=== PATIENT | male | born 1970 | race Caucasian/White ===

== ENCOUNTER 2020-01-07 10:48 | Emergency (ER) | payer OTHER ==
[~2020-01-07] VITALS: Ht 188 cm; Wt 89.8 kg
[2020-01-07 11:11] VITALS: BP_SYST 184
[2020-01-07] MEDS ORDERED: NACL 0.9% 1,000 ML IV ONE (11:23)
[2020-01-07] MEDS ORDERED: ASPIRIN 81 MG TAB.CHEW PO ONE (11:30)
[2020-01-07 11:50] LABS: BASOPHILS % (AUTO) 0.7 % (0.0-2.0); EOSINOPHILS % (AUTO) 0.5 % (0.0-4.0); HEMATOCRIT 50.3 % (36-54); HEMOGLOBIN 17.4 g/dL (14.0-18.0); LYMPHOCYTES # (AUTO) 1.6 K/uL (1.0-5.5); LYMPHOCYTES % (AUTO) 24.6 % (20.5-51.5); MEAN CORPUSCULAR HEMOGLOBIN 34 pg (27-31); MEAN CORPUSCULAR HGB CONC 35 % (32-36); MEAN CORPUSCULAR VOLUME 98 fL (79.0-98.0); MONOCYTES # (AUTO) 0.5 K/uL (0.0-1.0); MONOCYTES % (AUTO) 7.4 % (1.7-9.3); NEUTROPHILS # (AUTO) 4.3 K/uL (1.8-7.7); NEUTROPHILS % (AUTO) 66.8 % (40.0-70.0); PLATELET COUNT (AUTO) 300 K/uL (130-430); RED BLOOD CELL COUNT(AUTO) 5.14 MIL/uL (4.2-6.2); RED CELL DISTRIBUTION WIDTH 12.9 % (9.0-15.0); WHITE BLOOD COUNT (AUTO) 6.4 K/uL (4.8-10.8)
[2020-01-07 11:54] LABS: BARBITURATE, URINE NEGATIVE (NEG <=200); BENZODIAZEPINE, URINE NEGATIVE (NEG <=150); CANNABINOID, URINE NEGATIVE (NEG <=50); COCAINE, URINE NEGATIVE (NEG <=150); METHAMPHETAMINES SCREEN,URINE NEGATIVE (NEG <=500); OPIATE, URINE NEGATIVE (NEG <=100); PHENCYCLIDINE SCREEN,URINE NEGATIVE (NEG <=25); UR TRICYCLIC ANTIDEPRESSANTS NEGATIVE (NEG <=300); URINE AMPHETAMINE NEGATIVE (NEG <=500); URINE METHADONE NEGATIVE (NEG <=200); URINE OXYCODONE SCREEN NEGATIVE (NEG <=100); URINE PROPOXYPHENE SCREEN NEGATIVE (NEG <=300)
[2020-01-07 12:04] LABS: ANION GAP 14 (5-15); CALCIUM 8.4 mg/dL (8.4-11.0); CHLORIDE 99 mmol/L (98-107); CREATININE 0.77 mg/dL (0.55-1.30); GLUCOSE 99 mg/dL (70-99); POTASSIUM 3.6 mmol/L (3.5-5.1); SODIUM SERUM 136 mmol/L (136-145); UREA NITROGEN, BLOOD 7 mg/dL (8-21)
[2020-01-07 12:08] LABS: GFR AFRICAN AMERICAN 138 mL/min (>90)
[2020-01-07 12:13] LABS: ALANINE AMINOTRANSFERASE 82 U/L (12-78); ASPARTATE AMINOTRANSFERASE 61 U/L (10-37); TOTAL BILIRUBIN 0.7 mg/dL (0.0-1.0)
[2020-01-07 12:30] LABS: ACETAMINOPHEN < 1 ug/mL (1-30); ALCOHOL, BLOOD 158 mg/dL (<10)
[2020-01-07] MEDS ORDERED: LIDOCAINE VISCOUS 2%, 15 ML UDC MM ONE (12:30)
[2020-01-07 14:50] VITALS: BP_SYST 164
== END 2020-01-07 14:51 | disposition home or self-care (01) ==
LOC: SED 10:48
DX: R10.13 Epigastric pain (principal); F17.200 Nicotine dependence, unspecified, uncomplicated
CPT/HCPCS: 36415; 71045; 80053; 80307; 82140; 84484; 85025; 93005; 99285; G0480; G0481; G0482; J2001; J7030

== ENCOUNTER 2020-09-21 20:44 | Emergency (ER) | payer MEDICAID, OTHER ==
[~2020-09-21] VITALS: Ht 188 cm; Wt 88.5 kg
[2020-09-21 21:26] VITALS: BP_SYST 161
[2020-09-21 22:52] VITALS: BP_SYST 152
== END 2020-09-21 22:52 | disposition home or self-care (01) ==
LOC: SED 20:44
DX: B35.3 Tinea pedis (principal); F17.210 Nicotine dependence, cigarettes, uncomplicated
CPT/HCPCS: 82962; 99282

== ENCOUNTER 2020-12-15 04:25 | Emergency (ER) | payer MEDICAID ==
[~2020-12-15] VITALS: Ht 188 cm; Wt 89.8 kg
[2020-12-15 04:35] VITALS: BP_SYST 169
[2020-12-15 05:23] VITALS: BP_SYST 149
== END 2020-12-15 05:23 | disposition home or self-care (01) ==
LOC: SED 04:25
DX: F41.9 Anxiety disorder, unspecified (principal)
CPT/HCPCS: 99283

== ENCOUNTER 2021-05-08 14:04 | Emergency (ER) | payer MEDICAID ==
[~2021-05-08] VITALS: Ht 188 cm; Wt 88.5 kg
[2021-05-08 14:16] VITALS: BP_SYST 146
[2021-05-08 16:43] VITALS: BP_SYST 141
== END 2021-05-08 16:46 | disposition home or self-care (01) ==
LOC: SED 14:04
DX: S50.12XA Contusion of left forearm, initial encounter (principal); W51.XXXA Accidental striking against or bumped into by another person, initial encounter; Y93.64 Activity, baseball; Y92.89 Other specified places as the place of occurrence of the external cause; Y99.8 Other external cause status
CPT/HCPCS: 99282

== ENCOUNTER 2022-12-21 15:24 | Emergency (ER) | payer MEDICAID ==
[~2022-12-21] VITALS: Ht 170.2 cm; Wt 81.6 kg
[2022-12-21 15:26] VITALS: BP_SYST 163
[2022-12-21] MEDS ORDERED: LORazepam 1 MG TABLET PO ONE (15:45)
[2022-12-21] MEDS ORDERED: cloNIDine HCL 0.1 MG TABLET PO ONE (15:45)
[2022-12-21 16:15] LABS: BASOPHILS # (AUTO) 0.1 K/uL (0.0-0.2); BASOPHILS % (AUTO) 0.9 % (0.0-2.0); EOSINOPHILS % (AUTO) 0.8 % (0.0-4.0); HEMATOCRIT 47.8 % (36-54); HEMOGLOBIN 16.7 g/dL (14.0-18.0); LYMPHOCYTES # (AUTO) 2.5 K/uL (1.0-5.5); LYMPHOCYTES % (AUTO) 42.8 % (20.5-51.5); MEAN CORPUSCULAR HEMOGLOBIN 35 pg (27-31); MEAN CORPUSCULAR HGB CONC 35 % (32-36); MEAN CORPUSCULAR VOLUME 99 fL (79.0-98.0); MONOCYTES # (AUTO) 0.6 K/uL (0.0-1.0); MONOCYTES % (AUTO) 9.7 % (1.7-9.3); NEUTROPHILS # (AUTO) 2.6 K/uL (1.8-7.7); NEUTROPHILS % (AUTO) 45.8 % (40.0-70.0); PLATELET COUNT (AUTO) 259 K/uL (130-430); RED BLOOD CELL COUNT(AUTO) 4.82 MIL/uL (4.2-6.2); RED CELL DISTRIBUTION WIDTH 12.3 % (9.0-15.0); WHITE BLOOD COUNT (AUTO) 5.7 K/uL (4.8-10.8)
[2022-12-21 16:29] LABS: ANION GAP 11 (5-15); CALCIUM 8.1 mg/dL (8.4-11.0); CHLORIDE 96 mmol/L (98-107); CREATININE 0.64 mg/dL (0.55-1.30); GFR AFRICAN AMERICAN 169 mL/min (>90); GLUCOSE 97 mg/dL (70-99); UREA NITROGEN, BLOOD 3 mg/dL (8-21)
[2022-12-21 16:30] LABS: PROTHROMBIN TIME 10.6 SECS (9.5-12.5)
[2022-12-21 16:31] LABS: ALCOHOL, BLOOD 262 mg/dL (<10)
[2022-12-21 16:34] LABS: ACETONE, SERUM NEGATIVE (NEGATIVE)
[2022-12-21 16:36] LABS: ALANINE AMINOTRANSFERASE 53 U/L (12-78); ALBUMIN 3.8 g/dL (3.4-4.8); ASPARTATE AMINOTRANSFERASE 43 U/L (10-37); TOTAL BILIRUBIN 0.7 mg/dL (0.0-1.0)
[2022-12-21] MEDS ORDERED: OMEP20CA15 PO (17:28)
[2022-12-21] MEDS ORDERED: ALPR0.5T PO (17:28)
[2022-12-21 19:58] VITALS: BP_SYST 134
== END 2022-12-21 20:00 | disposition home or self-care (01) ==
LOC: SED 15:24
DX: K21.9 Gastro-esophageal reflux disease without esophagitis (principal); F10.10 Alcohol abuse, uncomplicated; Y90.8 Blood alcohol level of 240 mg/100 ml or more; Z79.899 Other long term (current) drug therapy
CPT/HCPCS: 99285; 71045; 80053; 82009; 83880; 85025; 85610; 85730; 84484; 36415; 93005; 83605; G0482

== ENCOUNTER 2023-01-28 19:39 | Emergency (ER) | payer MEDICAID ==
[~2023-01-28] VITALS: Ht 188 cm; Wt 88.9 kg
[~2023-01-28 19:39] MED LIST: ALPR0.5T PO; OMEP20CA15 PO
[2023-01-28 20:00] VITALS: BP_SYST 162; PULSE 99; RESP 16; TEMP 97.1; O2SAT 96
[2023-01-28] MEDS ORDERED: FOLIC ACID 1 MG, THIAMINE HCL 100 MG, MAGNESIUM SULFATE 1 GM, MVI 10 ML in NACL 0.9% 1,... IV ONE (20:00)
[2023-01-28] MEDS ORDERED: ONDANSETRON HCL 4 MG/2 ML VIAL IVP ONE (20:00)
[2023-01-28] MEDS ORDERED: NITROGLYCERIN 1 INCH (GM) OINT. TP ONE (20:00)
[2023-01-28] MEDS ORDERED: ASPIRIN 81 MG TABLET(ECOTRIN) PO ONE (20:00)
[2023-01-28 20:23] LABS: BASOPHILS % (AUTO) 0.8 % (0.0-2.0); EOSINOPHILS # (AUTO) 0.1 K/uL (0.0-0.4); EOSINOPHILS % (AUTO) 1.4 % (0.0-4.0); HEMATOCRIT 48.1 % (36-54); HEMOGLOBIN 16.6 g/dL (14.0-18.0); LYMPHOCYTES % (AUTO) 47.4 % (20.5-51.5); MEAN CORPUSCULAR HEMOGLOBIN 34 pg (27-31); MEAN CORPUSCULAR HGB CONC 35 % (32-36); MEAN CORPUSCULAR VOLUME 99 fL (79.0-98.0); MONOCYTES # (AUTO) 0.6 K/uL (0.0-1.0); MONOCYTES % (AUTO) 10.3 % (1.7-9.3); NEUTROPHILS # (AUTO) 2.5 K/uL (1.8-7.7); NEUTROPHILS % (AUTO) 40.1 % (40.0-70.0); PLATELET COUNT (AUTO) 275 K/uL (130-430); RED BLOOD CELL COUNT(AUTO) 4.86 MIL/uL (4.2-6.2); RED CELL DISTRIBUTION WIDTH 13.1 % (9.0-15.0); WHITE BLOOD COUNT (AUTO) 6.3 K/uL (4.8-10.8)
[2023-01-28] MEDS ORDERED: FOLIC ACID 5 MG/ML VIAL IV ONE (20:24)
[2023-01-28] MEDS ORDERED: MAGNESIUM SULFATE 1 GM/2 ML VIAL ONE (20:26)
[2023-01-28 20:28] LABS: PROTHROMBIN TIME 10.5 SECS (9.5-12.5)
[2023-01-28 20:29] LABS: ANION GAP 12 (5-15); CALCIUM 8.2 mg/dL (8.4-11.0); CHLORIDE 97 mmol/L (98-107); CREATININE 0.72 mg/dL (0.55-1.30); GFR AFRICAN AMERICAN 147 mL/min (>90); GLUCOSE 118 mg/dL (74-106); UREA NITROGEN, BLOOD 2 mg/dL (8-21)
[2023-01-28] MEDS ORDERED: LORazepam 2 MG/ML VIAL IVP ONE (20:30)
[2023-01-28] MEDS ORDERED: THIAMINE HCL 100 MG/ML VIAL ONE (20:30)
[2023-01-28 20:35] LABS: ALANINE AMINOTRANSFERASE 39 U/L (12-78); ALBUMIN 3.6 g/dL (3.4-4.8); ASPARTATE AMINOTRANSFERASE 33 U/L (10-37); TOTAL BILIRUBIN 0.9 mg/dL (0.0-1.0)
[2023-01-28] MEDS ORDERED: ASPIRIN 81 MG TABLET(ECOTRIN) ONE (20:54)
[2023-01-28] MEDS ORDERED: POTASSIUM CHLORIDE 20 MEQ TAB.PRT.SR PO ONE (21:30)
[2023-01-28] MEDS ORDERED: PANTOPRAZOLE SODIUM 40 MG/VIAL (PROTONIX) IVP ONE (21:30)
[2023-01-28] MEDS ORDERED: ONDA-8 TL (22:22)
[2023-01-28] MEDS ORDERED: OMEP40CA20 PO (22:22)
[2023-01-28] MEDS ORDERED: LIB25 PO (22:22)
[2023-01-28 23:19] VITALS: BP_SYST 135; PULSE 92; RESP 18; TEMP 98.6; O2SAT 95
== END 2023-01-28 23:19 | disposition home or self-care (01) ==
LOC: SED 19:39
DX: K29.20 Alcoholic gastritis without bleeding (principal); R07.9 Chest pain, unspecified; R10.13 Epigastric pain; K20.90 Esophagitis, unspecified without bleeding; F10.20 Alcohol dependence, uncomplicated; I10 Essential (primary) hypertension; Z79.899 Other long term (current) drug therapy; Y90.6 Blood alcohol level of 120-199 mg/100 ml
CPT/HCPCS: 99285; 96365; 96375; 71045; 80053; 83880; 85025; 85610; 84484; 36415; 93005; J3490; J2060; J3475; J2405; C9113; J3411; J7030

== ENCOUNTER 2023-02-06 13:28 | Emergency (ER) | payer MEDICAID ==
[~2023-02-06] VITALS: Ht 185.4 cm; Wt 87.1 kg
[~2023-02-06 13:28] MED LIST changes: +LIB25 PO; +OMEP40CA20 PO; +ONDA-8 TL
[2023-02-06 13:32] VITALS: BP_SYST 168; PULSE 95; RESP 22; TEMP 98.3
--- NOTE | 2023-02-06 13:50 | NUR ---
Placed in room 03 . Placed on gambling monitor, blood pressure machine and pulse oximeter. To gown for exam. Side rails up.
--- NOTE | 2023-02-06 13:50 | NUR ---
ER at bedside examining patient.
--- NOTE | 2023-02-06 14:09 | NUR ---
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
[2023-02-06] MEDS ORDERED: LORazepam 2 MG/ML VIAL IVP ONE (14:45)
[2023-02-06] MEDS ORDERED: ENALAPRILAT DIHYDRATE 1.25 MG/ML VIAL IVP ONE (14:45)
[2023-02-06] MEDS ORDERED: LABETALOL HCL 20 MG/4 ML CARTRIDGE IVP ONE (14:45)
[2023-02-06 15:32] LABS: BASOPHILS # (AUTO) 0.1 K/uL (0.0-0.2); EOSINOPHILS # (AUTO) 0.1 K/uL (0.0-0.4); EOSINOPHILS % (AUTO) 2.5 % (0.0-4.0); HEMATOCRIT 52.3 % (36-54); HEMOGLOBIN 17.7 g/dL (14.0-18.0); LYMPHOCYTES # (AUTO) 1.5 K/uL (1.0-5.5); LYMPHOCYTES % (AUTO) 28.2 % (20.5-51.5); MEAN CORPUSCULAR HEMOGLOBIN 33 pg (27-31); MEAN CORPUSCULAR HGB CONC 34 % (32-36); MEAN CORPUSCULAR VOLUME 99 fL (79.0-98.0); MONOCYTES # (AUTO) 0.8 K/uL (0.0-1.0); MONOCYTES % (AUTO) 15.6 % (1.7-9.3); NEUTROPHILS # (AUTO) 2.9 K/uL (1.8-7.7); NEUTROPHILS % (AUTO) 52.7 % (40.0-70.0); PLATELET COUNT (AUTO) 330 K/uL (130-430); RED BLOOD CELL COUNT(AUTO) 5.32 MIL/uL (4.2-6.2); WHITE BLOOD COUNT (AUTO) 5.4 K/uL (4.8-10.8)
[2023-02-06 15:43] LABS: CALCIUM 8.6 mg/dL (8.4-11.0); CREATININE 0.64 mg/dL (0.55-1.30)
[2023-02-06 15:49] LABS: ALBUMIN 3.9 g/dL (3.4-4.8); TOTAL BILIRUBIN 0.7 mg/dL (0.0-1.0)
[2023-02-06] MEDS ORDERED: HYDR-4038 PO (16:43)
--- NOTE | 2023-02-06 16:43 | NUR ---
Patient given written and verbal discharge instructions and verbalizes understanding. ER MD discussed with patient the results and treatment provided. Patient in stable condition. ID arm band removed. IV catheter removed intact and dressing applied, no active bleeding. Rx of given. Patient educated on pain management and to follow up with PMD. Pain Scale 0. Opportunity for questions provided and answered. Medication side effect fact sheet provided.
== END 2023-02-06 16:43 | disposition home or self-care (01) ==
LOC: SED 13:28
DX: F10.239 Alcohol dependence with withdrawal, unspecified (principal); I10 Essential (primary) hypertension; Z76.0 Encounter for issue of repeat prescription; F41.9 Anxiety disorder, unspecified; Z79.899 Other long term (current) drug therapy; Y90.6 Blood alcohol level of 120-199 mg/100 ml
CPT/HCPCS: 99284; 96374; 96375; 80053; 85025; 36415; 93005; G0482; J2060